=== PATIENT | female | born 1980 | race Two or more races ===

== ENCOUNTER → 2024-10-15 | Outpatient (CLI) | payer MEDICAID, SELFPAY ==
--- NOTE | 2024-10-15 10:00 | XR_ITS ---
Examination: Nuclear medicine hepatobiliary scan, static HIDA scan Date of exam: October 15, 2024 1026 hours INDICATIONS: Intermittent upper abdominal pain nausea vomiting 3 months Technique And Findings: 5.8 mCi 99m Hepatolite administered intravenously. Serial imaging obtained immediately through 60 minutes. Homogenous uptake in the liver. Common bile duct small bowel activity noted 1.6 Impression: Gallbladder activity Abnormal gallbladder ejection fraction, 11%, normal greater than 35%
[2024-10-15 10:21] LABS: HCG Qualitative,Urine Negative
== END | disposition home or self-care (01) ==
PROVIDERS: PCP Family Medicine; Referring Provider Family Medicine; Visit Provider Family Medicine
DX: K80.20 Calculus of gallbladder without cholecystitis without obstruction (principal); Z32.00 Encounter for pregnancy test, result unknown; R93.89 Abnormal findings on diagnostic imaging of other specified body structures
CPT/HCPCS: 78226; 81025; A9537; J2805

== ENCOUNTER 2024-10-18 20:16 | Emergency (ER) | payer MEDICAID, SELFPAY ==
[2024-10-18 21:04] VITALS: BP 122/68; PULSE 88; RESP 18; TEMP 36.9; O2SAT 99
--- NOTE | 2024-10-18 21:05 | XR_ITS ---
Examination: Abdomen sonogram, Limited Date and time of exam: October 18, 2024 2135 hrs. Indications: Onset right upper abdominal pain today Technique: Real-time chaves scale transabdominal sonographic images of the upper abdomen obtained. Findings: Cholelithiasis Gallbladder wall is thickened 0.4 cm with edema Common bile duct is enlarged 0.7 cm no definite stones Pancreatic head 2.1 cm Liver 14.5 cm smooth contour no focal liver lesions Normal hepatopedal portal venous flow Patent IVC Impression: Findings most consistent with acute calculus cholecystitis,. Common bile duct is enlarged 0.7 cm no definite stones, however, consider MRCP follow-up to exclude common bile duct stones and to confirm cholecystitis
--- NOTE | 2024-10-18 21:06 | PD.EDABDPN ---
ED Abdominal Pain RME/HPI General Chief Complaint: Abdominal Pain Stated complaint: ABD PAIN SINCE AM Time seen by provider: 10/18/24 20:24 Arrival date/time: 10/18/24 20:16 Source: patient, RN notes reviewed and old records reviewed Mode of arrival: ambulatory Limitations: no limitations RME / HPI RME / HPI narrative: 44yof presents to ED for RUQ abdominal pain x3 days worsened since this morning. Patient reports nausea and x2 episodes of vomiting today. No fever, shortness of breath, chest pain, diarrhea or urinary symptoms reported. Patient took ibuprofen this afternoon with mild relief Related Data Home Medications ?Medication ?Instructions ?Recorded ?Confirmed Vitamin * 1 tab PO QDAY #0 tabs 05/31/16 05/15/19 Previous Rx's ?Medication ?Instructions ?Recorded acetaminophen 500 mg tablet 1,000 mg (2 x 500 mg) PO Q6H PRN 10/18/24 (Tylenol Extra Strength) pain #30 tabs ibuprofen 600 mg tablet 600 mg PO Q6H PRN pain #30 tabs 10/18/24 ondansetron 4 mg disintegrating 4 mg PO Q6H PRN nausea and 10/18/24 tablet vomiting #10 tabs Allergies Allergy/AdvReac Type Severity Reaction Status Date / Time No Known Allergies Allergy Verified 05/04/21 05:46 Review of Systems Review of Systems Systems Reviewed: All systems reviewed, normal except as documented Constitutional Constitutional: Denies chills and Denies fever(s) ENT Ears, Nose, Mouth, and Throat: Denies dizziness Cardiovascular Cardiovascular: Denies chest pain and Denies dyspnea Respiratory Respiratory: Denies dyspnea Gastrointestinal Gastrointestinal: Reports abdominal pain, Denies loose stools, Reports nausea and Reports vomiting Genitourinary Genitourinary: Denies dysuria, Denies flank pain and Denies hematuria Neurologic Neurologic: Denies dizziness Past Medical History Past Medical History GASTROINTESTINAL: Positive Gastrointestinal Disorders (Gallstones) Surgical History OTHER SURGICAL HX: Denies past surgical history Social History SMOKING STATUS: Never smoker SUBSTANCE USE: does not use ALCOHOL: Never ED Exam General Limitations: Present no limitations General appearance: Present alert and in no apparent distress Head Head exam: Present atraumatic and normocephalic Eye Eye exam: Present normal appearance, PERRL and EOMI ENT ENT exam: Present normal exam and mucous membranes moist Neck Neck exam: Present normal inspection and full ROM Chest Chest inspection: Present normal inspection and symmetric chest wall rise Respiratory Respiratory exam: Present normal lung sounds bilaterally; Absent respiratory distress Cardiovascular Cardiovascular exam: Present regular rate and normal rhythm Abdominal Exam Abdominal exam: Present soft and tenderness (RUQ, mild); Absent distention, guarding or rebound Extremities Exam Extremities exam: Present normal inspection and full ROM Back Exam Back exam: Absent CVA tenderness (R) or CVA tenderness (L) Neurological Exam Neurological exam: Present alert and oriented X3 Psychiatric Psychiatric exam: Present normal affect and normal mood Skin Skin exam: Present warm, dry, intact and normal color Course Course Course Narrative: Consult to general surgery, Dr. Gonzalez. Reviewed labs and imaging. MD would like patient to discharge home with follow-up in his office in the following week. No antibiotics needed at discharge. Quality Measures none Orders Category Date Time Status US gall bladder Stat Exams 10/18/24 21:05 Completed CBC Stat Lab 10/18/24 21:10 Completed CMP [Comprehensive Metabolic Panel] Stat Lab 10/18/24 21:10 Completed HCG Qualitative,Urine Stat Lab 10/18/24 22:01 Completed Lipase Stat Lab 10/18/24 21:10 Completed UA [Urinalysis] Stat Lab 10/18/24 22:01 Completed HYDROcodone*/APAP 5/325 [[place] 5/325] Med 10/18/24 21:05 Discontinued 1 tab PO X1 ONE Ketorolac Inj [Toradol Inj] Med 10/18/24 21:05 Discontinued 30 mg IM X1 ONE Ondansetron Odt [Zofran Odt] Med 10/18/24 21:05 Discontinued 4 mg PO X1 ONE Vital Signs Vital signs: Vital Signs Temperature 98.5 F 10/18/24 21:04 Pulse Rate 88 10/18/24 21:04 Respiratory Rate 18 10/18/24 21:04 Blood Pressure 122/68 10/18/24 21:04 Pulse Oximetry (%) 99 10/18/24 21:04 Oxygen Delivery Method Room Air 10/18/24 21:04 Abdominal Pain MDM MDM Narrative MDM Narrative:: 44yof presents to ED for RUQ abdominal pain x3 days worsened since this morning. Patient reports nausea and x2 episodes of vomiting today. No fever, shortness of breath, chest pain, diarrhea or urinary symptoms reported. Patient took ibuprofen this afternoon with mild relief. Patient updated on labs and imaging. Encouraged close follow-up with Dr. Gonzalez in clinic. Recommended adequate fluids, symptomatic treatment prn. Stable for discharge, RTED precautions given. Patient data External records reviewed:: [facility] previous records (05/04/2021 ED visit for chest pain) Clinical information provided by:: patient Social determinants that could affect healthcare access:: other (specify) (Acculturation difficulty, unemployed) Patient has the following chronic illnesses:: GB disease How is presenting disease/condition affected by chronic disease/condition?: caused by Evaluation data The following diagnostics were reviewed and interpreted by me:: lab results and radiology exam(s) Lab and/or radiology exams considered but not ordered:: none Interpretation Summary: WBC 5.1 Hgb 10.9. Hx anemia, stable RUQ ultrasound: Impression: Findings most consistent with acute calculus cholecystitis,. Common bile duct is enlarged 0.7 cm no definite stones, however, consider MRCP follow-up to exclude common bile duct stones and to confirm cholecystitis Dictated By: Albino Moya MD Medications / Prescriptions Medications or Prescriptions considered but not ordered:: No antibiotics recommended at this time Medication administrations:: Medication Administration History Discontinued Medications Hydrocodone Bitart/Acetaminophen (Hydrocodone/Apap 5/325 Tablet) 1 tab PO X1 ONE Stop: 10/18/24 21:06 Last Admin: 10/18/24 21:22 Dose: 1 tab Documented By: ALESHA Ketorolac Tromethamine (Ketorolac Inj 60 Mg/2 Ml Vial) 30 mg IM X1 ONE Stop: 10/18/24 21:06 Last Admin: 10/18/24 21:21 Dose: 30 mg Documented By: ALESHA Ondansetron HCl (Ondansetron Odt 4 Mg Tabrap) 4 mg PO X1 ONE; Protocol Stop: 10/18/24 21:06 Last Admin: 10/18/24 21:22 Dose: 4 mg Documented By: OA Above medications administered in ED Consultations Consultation(s) initiated? (list below): Yes Consultation #1 (Physician, Specialty, Details): General surgery, Dr Gonzalez. See ED course. Diagnosis Differential diagnosis abdominal pain: other (Cholelithiasis cholecystitis, gastritis, PUD, constipation, nonspecific abdominal pain, gastroenteritis) Most likely diagnosis given after review of the tests above:: Cholelithiasis, cholecystitis Admission Indicated Admission indicated?: not indicated Admission Request Was there a request for admission?: No Disposition Plan Disposition Plan: Discharge Discharge Attestation Discharge Attestation: The patient and all family members were given an opportunity to ask questions and understood the discharge instructions. Discharge instructions specifically effects, indications for sooner follow up or return to the emergency department, and the expected course of current diagnosis. Patient condition: Stable Discharge Plan Plan Patient Disposition: HOME (Self Care) Patient condition on transfer: Stable Prescriptions/Referrals Prescriptions/Med Rec: New ondansetron 4 mg tablet,disintegrating 4 mg PO Q6H PRN (Reason: nausea and vomiting) Qty: 10 0RF ibuprofen 600 mg tablet 600 mg PO Q6H PRN (Reason: pain) Qty: 30 0RF acetaminophen [Tylenol Extra Strength] 500 mg tablet 1,000 mg PO Q6H PRN (Reason: pain) Qty: 30 0RF No Action Vitamin * 1 EACH tablet 1 tab PO QDAY Qty: 0 Referrals: Ney Ochoa MD [Primary Care Provider] - In 1 week Carmen Gonzalez MD [Physician] - 10/19/24 (Call tomorrow to schedule an appointment for follow-up) Problem List Clinical Impression: Calculus of gallbladder with cholecystitis Patient/Caregiver Discharge Instructions Education Materials: ED Cholecystitis, Confirmed Print Language: Bengali Stand Alone Forms: Darya Award Info., Patient Portal Info Letter PA/MARIANA Supervising Physician FAB/MARIANA Supervising Physician: Evan
[2024-10-18] MEDS: KETOROLAC INJ 60 MG/2 ML VIAL 30 MG IM (21:21)
[2024-10-18] MEDS: HYDROcodone/APAP 5/325 TABLET 1 TAB PO (21:22)
[2024-10-18] MEDS: ONDANSETRON ODT 4 MG TABRAP PO (21:22)
[2024-10-18 21:27] LABS: Basophils % (Auto) 1 % (0-2.5); Eosinophils # (Auto) 0.2 Thou/mm3 (0.0-0.5); Eosinophils % (Auto) 4 % (0-10); Hematocrit 32.3 % (36.0-46.0); Hemoglobin 10.9 g/dL (12.0-16.0); Immature Granulocytes % (Auto) 0 % (0-0); Lymphocytes # (Auto) 1.5 Thou/mm3 (1.0-4.8); Lymphocytes % (Auto) 29 % (10-50); Mean Corpuscular HGB Conc 33.7 g/dl (31.0-37.0); Mean Corpuscular Hemoglobin 27.5 pg (25.0-35.0); Mean Corpuscular Volume 82 fL (80-100); Monocytes # (Auto) 0.7 Thou/mm3 (0.0-0.8); Monocytes % (Auto) 14 % (0-12); Neutrophils # (Auto) 2.7 Thou/mm3 (1.8-7.7); Neutrophils % (Auto) 52 % (37-80); Nucleated Red Blood Cell % 0 /100 WBC (0); Platelet Count 181 Thou/mm3 (140-440); RDW Standard Deviation 39.2 fL (36.4-46.3); Red Blood Count 3.96 Miln/mm3 (4.00-5.20); White Blood Count 5.1 Thou/mm3 (3.6-11.0)
[2024-10-18 22:02] LABS: Alanine Aminotransferase 11 U/L (10-49); Albumin, Serum 4.5 gm/dL (3.5-5.0); Albumin/Globulin Ratio 1.7 (1.2-2.2); Alkaline Phosphatase 64 U/L (46-116); Anion Gap 8 (7-16); Aspartate Amino Transferase 17 U/L (0-34); BUN/Creatinine Ratio 20 Ratio (12-20); Bilirubin,Total 0.3 mg/dL (0.3-1.2); Blood Urea Nitrogen 12 mg/dL (9-23); Carbon Dioxide 26.5 mMol/L (20.0-31.0); Chloride 108 mMol/L (98-107); Creatinine (Component) 0.6 mg/dL (0.6-1.3); Globulin 2.6 gm/dL (2.3-3.5); Glucose 130 mg/dL (74-106); Lipase 39 U/L (12-53); Osmolality,Calculated 284 (275-295); Potassium 3.4 mMol/L (3.4-5.1); Sodium 142 mMol/L (136-145); Total Protein 7.1 gm/dL (5.7-8.2); eGFR > 60 See Note
[2024-10-18 22:08] LABS: Collection Type, Urine Clean Catch
[2024-10-18 22:18] LABS: Bilirubin,Urine Negative (Negative); Blood,Urine Negative (Negative); Clarity,Urine Clear (Clear/Hazy); Color,Urine Lt-Yellow (Lt Yel-Yel); Glucose, Urine Negative (Negative); HCG Qualitative,Urine Negative; Ketones,Urine Negative (Negative); Leukocyte Esterase,Urine Positive (Negative); Nitrite,Urine Negative (Negative); PH,Urine 6.5 (5.0-7.0); Protein,Urine Negative (Neg - Trace); RBC,Urine 6 /hpf (0-3); Specific Gravity,Urine 1.026 (1.001-1.035); Squamous Epithelial Cell,Urine < 1 /hpf (0-5); WBC,Urine < 1 /hpf (0-5)
[2024-10-18 23:01] VITALS: RESP 18
== END 2024-10-18 23:02 | disposition home or self-care (01) ==
PROVIDERS: Physician Assistant; Emergency Provider Emergency Medicine; PCP Family Medicine
DX: K80.10 Calculus of gallbladder with chronic cholecystitis without obstruction (principal)
CPT/HCPCS: 36415; 76705; 80053; 81001; 81025; 83690; 85025; 96372; 99284; J1885; Q0162; A9270

== ENCOUNTER 2025-03-10 10:51 | Emergency (ER) | payer MEDICAID, SELFPAY ==
[2025-03-10 11:19] VITALS: BP 143/89; PULSE 71; RESP 18; TEMP 37.4; O2SAT 99; BMI 27.6
--- NOTE | 2025-03-10 11:49 | EDNOTE_ITS ---
ED Dental RME/HPI General Chief complaint: Dental/Oral/Throat Stated complaint: DENTAL PAIN Time Seen by Provider: 03/10/25 11:30 Arrival date/time: 03/10/25 10:51 RME / HPI RME / HPI Narrative: 44-year-old female patient presents to the ED with a complaint of right lower molar pain for the past 3 weeks. She states she has gone to the dentist and had fillings placed but she continues to have pain. She was seen by her dentist this past Tuesday and was told that the billing for too high and have them ground down. She is still experience significant pain. She denies fever or chills, nausea or vomiting. She took two 600 mg Motrin tablets, and was advised to not repeat. Related Data Home Medications ?Medication ?Instructions ?Recorded ?Confirmed Vitamin * 1 tab PO QDAY #0 tabs 05/15/19 Previous Rx's ?Medication ?Instructions ?Recorded acetaminophen 500 mg tablet 1,000 mg (2 x 500 mg) PO Q 6H PRN 10/18/24 (Tylenol Extra Strength) pain #30 tabs ibuprofen 600 mg tablet 600 mg PO Q6H PRN pain #30 t abs 10/18/24 ondansetron 4 mg disintegrating 4 mg PO Q6H PRN nausea and 10/18/24 tablet vomiting #10 tabs amoxicillin 875 mg tablet 875 mg PO BID #20 tabs 03/10 Allergies Allergy/AdvReac Type Severity Reaction Status Date / Time No Known Allergies Allergy Verified 03/10/25 10:53 Review of Systems Review of Systems Systems Reviewed: All systems reviewed, normal except as documented Past Medical History Past Medical History NEUROLOGIC: Negative Neurological Disorders CARDIAC: Negative Cardiac Disorders or Congestive Heart Failure RESPIRATORY: Negative Chronic Obstructive Pulmonary Disease (COPD) GASTROINTESTINAL: Positive Gastrointestinal Disorders (Gallstones) GENITOURINARY: Negative Genitourinary Disorders or Renal Disease REPRODUCTIVE: Positive Previous Pregnancies MUSCULOSKELETAL: Negative Musculoskeletal Disorders ENDOCRINE: Negative Endocrine Disorders, Diabetes Mellitus Type 1 or Diabetes Mellitus Type 2 HEMATOLOGIC: Negative Blood Disorders OTHER HISTORY: Positive Chicken Pox; Negative Autoimmune Disease, Anesthesia Reactions, Human Immunodeficiency Virus (HIV), Measles, Mumps, Rubella (Mongolian Measles), Pertussis, Clostridium Difficile or Cancer Family History FAMILY HISTORY: Positive Family Cardiac Disorders (FATHER-HYPERTENSION); Negative Family Psychiatric Problems, Family Respiratory Disorders, Family Gastrointestinal Problems, Family Cancer, Family Surgery or Family Anesthesia Reaction Surgical History SURGICAL: Negative Cardiac Surgery, Ear Surgery, Abdominal Surgery, Nephrectomy, Joint Replacement or Section OTHER SURGICAL HX: Denies past surgical history Social History SMOKING STATUS: Never smoker SUBSTANCE USE: does not use ALCOHOL: Never ED Exam Narrative Physical exam: Alert and oriented 48-year-old female, mild acute pain distress noted. Holding right lower jaw area. No erythema, warmth, tenderness or swelling noted to the mandible. Fillings noted to the molars on the right lower side. Other teeth in the mouth appear to be ground down due to tooth grinding. No anterior cervical chain or submandibular adenopathy noted. Lungs are clear, regular rate and rhythm without murmurs. Course Course Course Narrative: 44-year-old female patient presents to the ED with a complaint of right lower molar pain for the past 3 weeks. She states she has gone to the dentist and had fillings placed but she continues to have pain. She was seen by her dentist this past Tuesday and was told that the billing for too high and have them ground down. She is still experience significant pain. She denies fever or chills, nausea or vomiting. She took two 600 mg Motrin tablets, and was advised to not repeat. Alert and oriented 48-year-old female, mild acute pain distress noted. Holding right lower jaw area. No erythema, warmth, tenderness or swelling noted to the mandible. Fillings noted to the molars on the right lower side. Other teeth in the mouth appear to be ground down due to tooth grinding. No anterior cervical chain or submandibular adenopathy noted. Lungs are clear, regular rate and rhythm without murmurs. Patient was given [place] 5/325mg PO prior to discharge. She will be discharged home with RX for Amoxicillin 875mg 1 tab PO bid, and advised to follow up with her Dentist tomorrow. Quality Measures none Orders Category Date Time Status HYDROcodone*/APAP 5/325 [[place] 5/325] Med 03/10/25 11:53 Discontinued 1 tab PO X1 ONE Hydrocodone 5mg PO. Vital Signs Vital signs: Vital Signs Temperature 99.4 F 03/10/25 11:19 Pulse Rate 71 03/10/25 11:19 Respiratory Rate 18 03/10/25 11:19 Blood Pressure 143/89 H 03/10/25 11:19 Pulse Oximetry (%) 99 03/10/25 11:19 Oxygen Delivery Method Room Air 03/10/25 11:19 Dental / Oral MDM Narrative MDM Narrative:: 44-year-old female patient presents to the ED with a complaint of right lower molar pain for the past 3 weeks. She states she has gone to the dentist and had fillings placed but she continues to have pain. She was seen by her dentist this past Tuesday and was told that the billing for too high and have them ground down. She is still experience significant pain. She denies fever or chills, nausea or vomiting. She took two 600 mg Motrin tablets, and was advised to not repeat. Alert and oriented 48-year-old female, mild acute pain distress noted. Holding right lower jaw area. No erythema, warmth, tenderness or swelling noted to the mandible. Fillings noted to the molars on the right lower side. Other teeth in the mouth appear to be ground down due to tooth grinding. No anterior cervical chain or submandibular adenopathy noted. Lungs are clear, regular rate and rhythm without murmurs. Patient was given [place] 5/325mg PO prior to discharge. She will be discharged home with RX for Amoxicillin 875mg 1 tab PO bid, and advised to follow up with her Dentist tomorrow. Patient data External records reviewed:: None Clinical information provided by:: patient Social determinants that could affect healthcare access:: none Patient has the following chronic illnesses:: None How is presenting disease/condition affected by chronic disease/condition?: no chronic disease Evaluation data The following diagnostics were reviewed and interpreted by me:: other (specify) (None) Lab and/or radiology exams considered but not ordered:: N/A Interpretation Summary: N/A Medications / Prescriptions Medications or Prescriptions considered but not ordered:: N/A Medication administrations:: Medication Administration History Discontinued Medications Hydrocodone Bitart/Acetaminophen (Hydrocodone/Apap 5/325 Tablet) 1 tab PO X1 ONE Stop: 03/10/25 11:54 Last Admin: 03/10/25 11:58 Dose: 1 tab Documented By: GM Hydrocodone 5mg PO. Consultations Consultation(s) initiated? (list below): No Diagnosis Dental Differential Diagnosis: gingival abscess, dental caries, toothache and dental abscess Most likely diagnosis given after review of the tests above:: Dental abscess with toothache Admission Indicated Admission indicated?: not indicated Explain why admission is indicated or not indicated:: Patient is stable for discharge. Admission Request Was there a request for admission?: No Disposition Plan Disposition Plan: Discharge Discharge Attestation Discharge Attestation: The patient and all family members were given an opportunity to ask questions and understood the discharge instructions. Discharge instructions specifically effects, indications for sooner follow up or return to the emergency department, and the expected course of current diagnosis. Patient condition: Stable Discharge Plan Plan Patient Disposition: HOME (Self Care) Discharge Disposition comment: Stable and Improved Prescriptions/Referrals Prescriptions/Med Rec: New amoxicillin 875 mg tablet 875 mg PO BID Qty: 20 0RF No Action Vitamin * 1 EACH tablet 1 tab PO QDAY Qty: 0 ondansetron 4 mg tablet,disintegrating 4 mg PO Q6H PRN (Reason: nausea and vomiting) Qty: 10 0RF ibuprofen 600 mg tablet 600 mg PO Q6H PRN (Reason: pain) Qty: 30 0RF acetaminophen [Tylenol Extra Strength] 500 mg tablet 1,000 mg PO Q6H PRN (Reason: pain) Qty: 30 0RF Problem List Clinical Impression: Dental abscess, Toothache Patient/Caregiver Discharge Instructions Education Materials: Dental Abscess Additional Instructions: Follow-up with your primary care physician in 24 to 48 hours. Return to the ED for any new or worsening symptoms. Print Language: Icelandic Stand Alone Forms: Darya Award Info., Patient Portal Info Letter PA/GLASS UNLOADING EQUIPMENT TENDER Supervising Physician PA/GLASS UNLOADING EQUIPMENT TENDER Supervising Physician: Dr San
[2025-03-10] MEDS: HYDROcodone/APAP 5/325 TABLET 1 TAB PO (11:58)
== END 2025-03-10 12:10 | disposition home or self-care (01) ==
LOC: SERX 12:32
PROVIDERS: Emergency Provider Emergency Medicine; PCP Family Medicine
DX: K04.7 Periapical abscess without sinus (principal)
CPT/HCPCS: 99283; A9270